=== PATIENT | male | born 1940 | race Caucasian/White ===

== ENCOUNTER 2020-12-01 07:33 | Outpatient (REF) | payer MEDICARE, SELFPAY ==
[2020-12-01 10:23] LABS: MANUAL DIFF FLAG NO
[2020-12-01 10:44] LABS: Basophils Percent Auto 0.2 % (0-2); Eosinophils Absolute Auto 0.4 X10*3/uL (0.0-0.4); Eosinophils Percent Auto 4.3 % (0-4); Hematocrit 44.6 % (42-52); Hemoglobin 14.6 g/dl (14.0-18.0); Imm Gran Abs Auto 0.05 X10*3/uL (0.00-0.03); Imm Gran Pct Auto 0.5 % (0.0-0.4); Lymphocytes Absolute Auto 2.3 X10*3/uL (1.2-4.9); Lymphocytes Percent Auto 24.4 % (20-40); Mean Corpuscular HGB Conc 32.7 g/dl (31.0-36.0); Mean Corpuscular Volume 88.7 fL (80-98); Monocytes Absolute Auto 0.8 X10*3/uL (0.1-1.2); Monocytes Percent Auto 8.2 % (2-11); Neutrophils Absolute Auto 5.8 X10*3/uL (2.0-8.3); Neutrophils Percent Auto 62.4 % (45-73); Platelet Count 234 X10*3/uL (160-400); Red Blood Count 5.03 X10*6/uL (4.60-5.80); Red Cell Distribution Width 12.5 % (11.0-16.0); White Blood Count 9.2 X10*3/uL (4.8-10.8)
[2020-12-01 10:58] LABS: Alanine Aminotransferase 30 U/L (0-40); Albumin Level 4.1 g/dL (3.5-5.0); Alkaline Phosphatase 79 U/L (39-117); Anion Gap 15 (12-20); Aspartate Amino Transferase 22 U/L (5-37); Blood Urea Nitrogen 27 mg/dL (9-16); Carbon Dioxide 26 mmol/L (22-29); Chloride 103 mmol/L (96-108); Cholesterol 106 mg/dL; Estimated Glomerular Filt Rate > 60; Glucose Fasting 112 mg/dL (60-99); HDL Cholesterol 44 mg/dL; LDL Cholesterol Calculated 35 mg/dl; Potassium 4.5 mmol/L (3.3-5.1); Sodium 139 mmol/L (135-145); Total Protein 6.3 g/dL (6.5-8.0); Triglycerides 135 mg/dL
[2020-12-01 11:05] LABS: Creatinine Urine 173.66 mg/dL
[2020-12-01 12:01] LABS: Estimated Average Glucose 120 mg/dL; Hemoglobin A1C 150.0472 umol/L; Hemoglobin A1c % 5.8 %
== END 2020-12-01 07:34 | disposition home or self-care (01) ==
LOC: HO.10HDL 07:33
PROVIDERS: Visit Provider Internal Medicine
DX: Z00.00 Encounter for general adult medical examination without abnormal findings (principal); E11.9 Type 2 diabetes mellitus without complications; E78.00 Pure hypercholesterolemia, unspecified
CPT/HCPCS: 36415; 80053; 80061; 82043; 83036; 85025

== ENCOUNTER 2021-06-04 07:27 | Outpatient (REF) | payer MEDICARE, SELFPAY ==
[2021-06-04 08:06] LABS: Estimated Average Glucose 123 mg/dL; Hemoglobin A1C 151.7213 umol/L; Hemoglobin A1c % 5.9 %
[2021-06-04 08:23] LABS: Alanine Aminotransferase 31 U/L (0-40); Albumin Level 4.1 g/dL (3.5-5.0); Alkaline Phosphatase 76 U/L (39-117); Anion Gap 11 (12-20); Aspartate Amino Transferase 19 U/L (5-37); Bilirubin Total 0.7 mg/dL (0.0-1.0); Blood Urea Nitrogen 18 mg/dL (9-16); Carbon Dioxide 27 mmol/L (22-29); Chloride 105 mmol/L (96-108); Estimated Glomerular Filt Rate > 60; Glucose Random 115 mg/dL (60-115); Potassium 4.4 mmol/L (3.3-5.1); Sodium 139 mmol/L (135-145); Total Protein 6.1 g/dL (6.5-8.0)
== END 2021-06-04 07:28 | disposition home or self-care (01) ==
LOC: HO.LAB 07:27
PROVIDERS: PCP Internal Medicine; Visit Provider Internal Medicine
DX: E11.9 Type 2 diabetes mellitus without complications (principal); I65.21 Occlusion and stenosis of right carotid artery; M54.2 Cervicalgia; R25.2 Cramp and spasm
CPT/HCPCS: 36415; 80053; 83036

== ENCOUNTER 2021-09-22 06:58 | Outpatient (REF) | payer MEDICARE, SELFPAY ==
[2021-09-22 07:54] LABS: Alanine Aminotransferase 37 U/L (0-40); Alkaline Phosphatase 69 U/L (39-117); Anion Gap 9 (12-20); Aspartate Amino Transferase 22 U/L (5-37); Bilirubin Total 0.6 mg/dL (0.0-1.0); Blood Urea Nitrogen 22 mg/dL (9-16); Calcium 8.7 mg/dL (8.4-10.2); Carbon Dioxide 28 mmol/L (22-29); Chloride 107 mmol/L (96-108); Estimated Glomerular Filt Rate > 60; Glucose Random 110 mg/dL (60-115); Potassium 4.2 mmol/L (3.3-5.1); Sodium 140 mmol/L (135-145); Total Protein 6.1 g/dL (6.5-8.0)
[2021-09-22 07:57] LABS: Estimated Average Glucose 120 mg/dL; Hemoglobin A1c % 5.8 %
== END 2021-09-22 06:59 | disposition home or self-care (01) ==
LOC: HO.LAB 06:58
PROVIDERS: PCP Internal Medicine; Visit Provider Internal Medicine
DX: Z00.00 Encounter for general adult medical examination without abnormal findings (principal); I10 Essential (primary) hypertension
CPT/HCPCS: 36415; 80053; 83036

== ENCOUNTER 2021-10-29 06:44 | Outpatient (REF) | payer MEDICARE, SELFPAY ==
[2021-10-29 06:55] LABS: MANUAL DIFF FLAG NO
[2021-10-29 07:31] LABS: Basophils Percent Auto 0.3 % (0-2); Eosinophils Absolute Auto 0.3 X10*3/uL (0.0-0.4); Eosinophils Percent Auto 3.2 % (0-4); Hematocrit 43.6 % (42.0-52.0); Hemoglobin 14.5 g/dl (14.0-18.0); Imm Gran Abs Auto 0.03 X10*3/uL (0.00-0.03); Imm Gran Pct Auto 0.3 % (0.0-0.4); Lymphocytes Absolute Auto 2.6 X10*3/uL (1.2-4.9); Lymphocytes Percent Auto 30.2 % (20-40); Mean Corpuscular HGB Conc 33.3 g/dl (31.0-36.0); Mean Corpuscular Hemoglobin 29.1 pg (27.0-33.0); Mean Corpuscular Volume 87.6 fL (80.0-98.0); Mean Platelet Volume 8.4 fL (9.4-12.4); Monocytes Absolute Auto 0.7 X10*3/uL (0.1-1.2); Monocytes Percent Auto 7.7 % (2-11); Neutrophils Absolute Auto 5.1 x10*3/uL (2.0-8.3); Neutrophils Percent Auto 58.3 % (45-73); Platelet Count 229 X10*3/uL (160-400); Red Blood Count 4.98 X10*6/uL (4.60-5.80); Red Cell Distribution Width 12.7 % (11.0-16.0); White Blood Count 8.7 X10*3/uL (4.8-10.8)
[2021-10-29 07:42] LABS: Alanine Aminotransferase 36 U/L (0-40); Albumin Level 3.9 g/dL (3.5-5.0); Alkaline Phosphatase 70 U/L (39-117); Anion Gap 14 (12-20); Aspartate Amino Transferase 21 U/L (5-37); Bilirubin Total 0.6 mg/dL (0.0-1.0); Blood Urea Nitrogen 22 mg/dL (9-16); Calcium 8.9 mg/dL (8.4-10.2); Carbon Dioxide 27 mmol/L (22-29); Chloride 105 mmol/L (96-108); Estimated Glomerular Filt Rate > 60; Glucose Random 97 mg/dL (60-115); Potassium 4.5 mmol/L (3.3-5.1); Sodium 141 mmol/L (135-145)
== END 2021-10-29 06:45 | disposition home or self-care (01) ==
LOC: HO.LAB 06:44
PROVIDERS: PCP Internal Medicine; Visit Provider Internal Medicine
DX: K59.00 Constipation, unspecified (principal); N17.9 Acute kidney failure, unspecified; R42 Dizziness and giddiness; Z79.01 Long term (current) use of anticoagulants
CPT/HCPCS: 36415; 80053; 85025

== ENCOUNTER 2022-01-05 07:21 | Outpatient (REF) | payer MEDICARE, SELFPAY ==
[2022-01-05 07:32] LABS: MANUAL DIFF FLAG NO
[2022-01-05 08:45] LABS: Basophils Percent Auto 0.3 % (0-2); Eosinophils Absolute Auto 0.2 X10*3/uL (0.0-0.4); Eosinophils Percent Auto 1.9 % (0-4); Hematocrit 47.8 % (42.0-52.0); Hemoglobin 15.6 g/dl (14.0-18.0); Imm Gran Abs Auto 0.07 X10*3/uL (0.00-0.03); Imm Gran Pct Auto 0.7 % (0.0-0.4); Lymphocytes Absolute Auto 2.7 X10*3/uL (1.2-4.9); Lymphocytes Percent Auto 28.9 % (20-40); Mean Corpuscular HGB Conc 32.6 g/dl (31.0-36.0); Mean Corpuscular Hemoglobin 29.3 pg (27.0-33.0); Mean Corpuscular Volume 89.7 fL (80.0-98.0); Mean Platelet Volume 8.5 fL (9.4-12.4); Monocytes Absolute Auto 0.6 X10*3/uL (0.1-1.2); Monocytes Percent Auto 6.1 % (2-11); Neutrophils Absolute Auto 5.8 x10*3/uL (2.0-8.3); Neutrophils Percent Auto 62.1 % (45-73); Platelet Count 218 X10*3/uL (160-400); Red Blood Count 5.33 X10*6/uL (4.60-5.80); Red Cell Distribution Width 13.3 % (11.0-16.0); White Blood Count 9.4 X10*3/uL (4.8-10.8)
[2022-01-05 08:54] LABS: Estimated Average Glucose 126 mg/dL
[2022-01-05 09:28] LABS: Alanine Aminotransferase 61 U/L (0-40); Alkaline Phosphatase 76 U/L (39-117); Anion Gap 16 (12-20); Aspartate Amino Transferase 28 U/L (5-37); Bilirubin Total 0.8 mg/dL (0.0-1.0); Blood Urea Nitrogen 24 mg/dL (9-16); Calcium 9.2 mg/dL (8.4-10.2); Carbon Dioxide 26 mmol/L (22-29); Chloride 104 mmol/L (96-108); Cholesterol 112 mg/dL; Estimated Glomerular Filt Rate > 60; Glucose Random 86 mg/dL (60-115); HDL Cholesterol 52 mg/dL; LDL Cholesterol Calculated 48 mg/dl; Potassium 4.5 mmol/L (3.3-5.1); Sodium 141 mmol/L (135-145); Triglycerides 63 mg/dL
[2022-01-05 09:52] LABS: Prostate Specific Antigen 2.43 ng/mL (<0.05-4.0); Thyroid Stimulating Hormone 1.75 uIU/mL (0.32-4.0)
[2022-01-05 09:59] LABS: Folate 9.4 ng/mL (> or = 4.0); Vitamin B12 424 pg/mL (200-900)
[2022-01-05 14:16] LABS: Creatinine Urine 164.82 mg/dL; Microalbum/Creatinine Ratio Ur 7.2 ug/mg cr
== END 2022-01-05 07:22 | disposition home or self-care (01) ==
LOC: HO.LAB 07:21
PROVIDERS: PCP Internal Medicine; Visit Provider Internal Medicine
DX: Z00.00 Encounter for general adult medical examination without abnormal findings (principal); Z12.5 Encounter for screening for malignant neoplasm of prostate; E11.40 Type 2 diabetes mellitus with diabetic neuropathy, unspecified; E78.00 Pure hypercholesterolemia, unspecified; I10 Essential (primary) hypertension; I48.91 Unspecified atrial fibrillation; N40.0 Benign prostatic hyperplasia without lower urinary tract symptoms
CPT/HCPCS: 36415; 80053; 80061; 82043; 82607; 82746; 83036; 84153; 84443; 85025

== ENCOUNTER 2022-05-20 07:01 | Outpatient (REF) | payer MEDICARE, SELFPAY ==
[2022-05-20 07:59] LABS: Alanine Aminotransferase 53 U/L (0-40); Albumin Level 3.9 g/dL (3.5-5.0); Alkaline Phosphatase 70 U/L (39-117); Anion Gap 14 (12-20); Aspartate Amino Transferase 25 U/L (5-37); Bilirubin Total 0.8 mg/dL (0.0-1.0); Blood Urea Nitrogen 28 mg/dL (9-16); Calcium 9.2 mg/dL (8.4-10.2); Carbon Dioxide 27 mmol/L (22-29); Chloride 106 mmol/L (96-108); Estimated Glomerular Filt Rate > 60; Glucose Random 98 mg/dL (60-115); Potassium 4.9 mmol/L (3.3-5.1); Sodium 142 mmol/L (135-145); Total Protein 5.9 g/dL (6.5-8.0)
[2022-05-20 09:04] LABS: Estimated Average Glucose 123 mg/dL; Hemoglobin A1c % 5.9 %
== END 2022-05-20 07:02 | disposition home or self-care (01) ==
LOC: HO.LAB 07:01
PROVIDERS: PCP Internal Medicine; Visit Provider Internal Medicine
DX: E11.40 Type 2 diabetes mellitus with diabetic neuropathy, unspecified (principal); E78.00 Pure hypercholesterolemia, unspecified; G47.62 Sleep related leg cramps; I48.91 Unspecified atrial fibrillation
CPT/HCPCS: 36415; 80053; 83036

== ENCOUNTER 2022-05-26 09:39 | Outpatient (REF) | payer MEDICARE, SELFPAY ==
--- NOTE | ~2022-05-26 | XR_ITS ---
EXAMINATION: XR HIP, RIGHT CLINICAL INFORMATION: Right hip osteoarthritis COMPARISON: None available. TECHNIQUE: Two views of the right hip. FINDINGS: Visualized portions of the proximal right femur demonstrate no fracture. Right femoral head is well-seated within the acetabulum. Right femoral acetabular joint space is well-maintained. Small osteophytes are noted along the superior and inferior acetabular margins. The pelvic ring is intact. Limited imaging of the left hip is grossly unremarkable. Calcifications noted within the central pelvis. XR/XR hip RT min 2V IMPRESSION: Mild degenerative changes of the right hip without fracture or dislocation.
== END 2022-05-26 09:40 | disposition home or self-care (01) ==
LOC: HO.XRAY 09:39
PROVIDERS: PCP Internal Medicine; Visit Provider Internal Medicine
DX: M16.11 Unilateral primary osteoarthritis, right hip (principal)
CPT/HCPCS: 73502

== ENCOUNTER 2022-06-04 10:19 | Outpatient (REF) | payer MEDICARE, SELFPAY ==
--- NOTE | ~2022-06-04 | US_ITS ---
EXAMINATION: US RETROPERITONEAL LIMITED (RENAL ONLY) CLINICAL INFORMATION: Renal cyst. COMPARISON: None available. TECHNIQUE: Real-time imaging of the kidneys. FINDINGS: RIGHT KIDNEY: 12.3 x 6.0 x 6.4 cm (SAG x AP x TRV). The kidney is normal in size and contour. No renal calculi or hydronephrosis. There is a 3.7 x 3 x 3.1 cm peripelvic cyst in the lower pole. There is question of single thin septation. No ultrasound follow-up. LEFT KIDNEY: 11.9 x 6.9 x 6.3 cm (SAG x AP x TRV). The kidney is normal in size and contour. No calculi or focal parenchymal lesions. No hydronephrosis. US/US renal BI IMPRESSION: 3.7 x 3 x 3.1 cm peripelvic cyst in the lower pole of the right kidney.
== END 2022-06-04 10:20 | disposition home or self-care (01) ==
LOC: HO.HMGCX 10:19
PROVIDERS: PCP Internal Medicine; Visit Provider Internal Medicine
DX: N28.1 Cyst of kidney, acquired (principal)
CPT/HCPCS: 76775

== ENCOUNTER 2022-08-16 07:12 | Outpatient (REF) | payer MEDICARE, SELFPAY ==
[2022-08-16 07:57] LABS: Estimated Average Glucose 111 mg/dL; Hemoglobin A1C 150.6374 umol/L; Hemoglobin A1c % 5.5 %
[2022-08-16 08:22] LABS: Alanine Aminotransferase 33 U/L (0-40); Albumin Level 3.9 g/dL (3.5-5.0); Alkaline Phosphatase 73 U/L (39-117); Anion Gap 15 (12-20); Aspartate Amino Transferase 22 U/L (5-37); Bilirubin Total 1.4 mg/dL (0.0-1.0); Blood Urea Nitrogen 23 mg/dL (9-16); Carbon Dioxide 24 mmol/L (22-29); Chloride 108 mmol/L (96-108); Estimated Glomerular Filt Rate > 60; Glucose Random 107 mg/dL (60-115); Potassium 4.7 mmol/L (3.3-5.1); Sodium 142 mmol/L (135-145); Total Protein 5.9 g/dL (6.5-8.0)
== END 2022-08-16 07:13 | disposition home or self-care (01) ==
LOC: HO.LAB 07:12
PROVIDERS: PCP Internal Medicine; Visit Provider Internal Medicine
DX: E11.9 Type 2 diabetes mellitus without complications (principal); E78.00 Pure hypercholesterolemia, unspecified; M16.11 Unilateral primary osteoarthritis, right hip; M47.812 Spondylosis without myelopathy or radiculopathy, cervical region
CPT/HCPCS: 36415; 80053; 83036

== ENCOUNTER 2022-11-17 07:20 | Outpatient (REF) | payer MEDICARE, SELFPAY ==
[2022-11-17 07:32] LABS: MANUAL DIFF FLAG NO
[2022-11-17 07:49] LABS: Basophils Percent Auto 0.4 % (0-2); Eosinophils Absolute Auto 0.3 X10*3/uL (0.0-0.4); Eosinophils Percent Auto 4.5 % (0-4); Hematocrit 45.1 % (42.0-52.0); Hemoglobin 14.7 g/dl (14.0-18.0); Imm Gran Abs Auto 0.05 X10*3/uL (0.00-0.03); Imm Gran Pct Auto 0.7 % (0.0-0.4); Lymphocytes Percent Auto 26.8 % (20-40); Mean Corpuscular HGB Conc 32.6 g/dl (31.0-36.0); Mean Corpuscular Hemoglobin 29.2 pg (27.0-33.0); Mean Corpuscular Volume 89.7 fL (80.0-98.0); Mean Platelet Volume 8.5 fL (9.4-12.4); Monocytes Absolute Auto 0.5 X10*3/uL (0.1-1.2); Monocytes Percent Auto 7.2 % (2-11); Neutrophils Absolute Auto 4.5 x10*3/uL (2.0-8.3); Neutrophils Percent Auto 60.4 % (45-73); Platelet Count 219 X10*3/uL (160-400); Red Blood Count 5.03 X10*6/uL (4.60-5.80); Red Cell Distribution Width 12.8 % (11.0-16.0); White Blood Count 7.5 X10*3/uL (4.8-10.8)
[2022-11-17 07:53] LABS: Estimated Average Glucose 114 mg/dL; Hemoglobin A1C 148.7577 umol/L; Hemoglobin A1c % 5.6 % (<6.0)
[2022-11-17 08:14] LABS: Alanine Aminotransferase 24 U/L (0-40); Albumin Level 3.9 g/dL (3.5-5.0); Alkaline Phosphatase 81 U/L (39-117); Anion Gap 11 (12-20); Aspartate Amino Transferase 23 U/L (5-37); Bilirubin Total 0.7 mg/dL (0.0-1.0); Blood Urea Nitrogen 21 mg/dL (9-16); Calcium 9.1 mg/dL (8.4-10.2); Carbon Dioxide 25 mmol/L (22-29); Chloride 110 mmol/L (96-108); Cholesterol 97 mg/dL (<200); Estimated Glomerular Filt Rate > 60; Glucose Fasting 143 mg/dL (60-99); HDL Cholesterol 41 mg/dL (>40); LDL Cholesterol Calculated 31 mg/dL (<100); Potassium 4.5 mmol/L (3.3-5.1); Sodium 141 mmol/L (135-145); Total Protein 6.1 g/dL (6.5-8.0); Triglycerides 128 mg/dL (<150)
[2022-11-17 08:38] LABS: Vitamin B12 591 pg/mL (200-900)
[2022-11-17 08:38] LABS: Creatinine Urine 199.73 mg/dL
== END 2022-11-17 07:21 | disposition home or self-care (01) ==
LOC: HO.LAB 07:20
PROVIDERS: PCP Internal Medicine; Visit Provider Internal Medicine
DX: E11.9 Type 2 diabetes mellitus without complications (principal); E78.00 Pure hypercholesterolemia, unspecified; I48.91 Unspecified atrial fibrillation; Z79.01 Long term (current) use of anticoagulants
CPT/HCPCS: 36415; 80053; 80061; 82043; 82570; 82607; 83036; 85025

== ENCOUNTER 2023-03-17 07:25 | Outpatient (REF) | payer OTHER, MEDICAID, SELFPAY ==
[2023-03-17 08:42] LABS: Estimated Average Glucose 114 mg/dL; Hemoglobin A1c % 5.6 % (<6.0)
[2023-03-17 09:08] LABS: Alanine Aminotransferase 43 U/L (0-40); Albumin Level 3.9 g/dL (3.5-5.0); Alkaline Phosphatase 67 U/L (39-117); Anion Gap 12 (12-20); Aspartate Amino Transferase 25 U/L (5-37); Bilirubin Total 0.7 mg/dL (0.0-1.0); Blood Urea Nitrogen 25 mg/dL (9-16); Carbon Dioxide 25 mmol/L (22-29); Chloride 109 mmol/L (96-108); Estimated Glomerular Filt Rate > 60; Glucose Random 107 mg/dL (60-115); Potassium 4.5 mmol/L (3.3-5.1); Sodium 141 mmol/L (135-145); Total Protein 6.1 g/dL (6.5-8.0)
== END 2023-03-17 07:26 | disposition home or self-care (01) ==
LOC: HO.LAB 07:25
PROVIDERS: PCP Internal Medicine; Visit Provider Internal Medicine
DX: E11.9 Type 2 diabetes mellitus without complications (principal); E78.00 Pure hypercholesterolemia, unspecified; N40.0 Benign prostatic hyperplasia without lower urinary tract symptoms; R31.9 Hematuria, unspecified; Z79.01 Long term (current) use of anticoagulants
CPT/HCPCS: 36415; 80053; 83036

== ENCOUNTER 2023-06-17 07:08 | Outpatient (REF) | payer MEDICARE, SELFPAY ==
[2023-06-17 07:20] LABS: MANUAL DIFF FLAG NO
[2023-06-17 07:38] LABS: Basophils Percent Auto 0.4 % (0-2); Eosinophils Absolute Auto 0.4 X10*3/uL (0.0-0.4); Eosinophils Percent Auto 5.3 % (0-4); Hematocrit 45.2 % (42.0-52.0); Imm Gran Abs Auto 0.02 X10*3/uL (0.00-0.03); Imm Gran Pct Auto 0.3 % (0.0-0.4); Lymphocytes Absolute Auto 2.2 X10*3/uL (1.2-4.9); Lymphocytes Percent Auto 31.8 % (20-40); Mean Corpuscular HGB Conc 33.2 g/dl (31.0-36.0); Mean Corpuscular Hemoglobin 29.5 pg (27.0-33.0); Mean Corpuscular Volume 88.8 fL (80.0-98.0); Mean Platelet Volume 8.5 fL (9.4-12.4); Monocytes Absolute Auto 0.6 X10*3/uL (0.1-1.2); Monocytes Percent Auto 7.9 % (2-11); Neutrophils Absolute Auto 3.8 x10*3/uL (2.0-8.3); Neutrophils Percent Auto 54.3 % (45-73); Platelet Count 176 X10*3/uL (160-400); Red Blood Count 5.09 X10*6/uL (4.60-5.80); Red Cell Distribution Width 13.3 % (11.0-16.0)
[2023-06-17 07:40] LABS: Alanine Aminotransferase 30 U/L (0-40); Albumin Level 3.9 g/dL (3.5-5.0); Alkaline Phosphatase 73 U/L (39-117); Anion Gap 12 (12-20); Aspartate Amino Transferase 23 U/L (5-37); Bilirubin Total 0.9 mg/dL (0.0-1.0); Blood Urea Nitrogen 28 mg/dL (9-16); Calcium 8.8 mg/dL (8.4-10.2); Carbon Dioxide 25 mmol/L (22-29); Chloride 109 mmol/L (96-108); Estimated Glomerular Filt Rate > 60; Glucose Random 112 mg/dL (60-115); Potassium 4.5 mmol/L (3.3-5.1); Sodium 141 mmol/L (135-145); Total Protein 6.3 g/dL (6.5-8.0)
[2023-06-17 07:46] LABS: Estimated Average Glucose 123 mg/dL; Hemoglobin A1c % 5.9 % (<6.0)
== END 2023-06-17 07:09 | disposition home or self-care (01) ==
LOC: HO.LAB 07:08
PROVIDERS: PCP Internal Medicine; Visit Provider Internal Medicine
DX: E11.9 Type 2 diabetes mellitus without complications (principal); I48.91 Unspecified atrial fibrillation; M51.16 Intervertebral disc disorders with radiculopathy, lumbar region; N40.0 Benign prostatic hyperplasia without lower urinary tract symptoms; Z79.01 Long term (current) use of anticoagulants
CPT/HCPCS: 36415; 80053; 83036; 85025

== ENCOUNTER 2023-10-14 07:24 | Outpatient (REF) | payer MEDICARE, SELFPAY ==
[2023-10-14 07:46] LABS: MANUAL DIFF FLAG NO
[2023-10-14 08:01] LABS: Basophils Percent Auto 0.3 % (0-2); Eosinophils Absolute Auto 0.3 X10*3/uL (0.0-0.4); Eosinophils Percent Auto 4.1 % (0-4); Hemoglobin 14.9 g/dl (14.0-18.0); Imm Gran Abs Auto 0.03 X10*3/uL (0.00-0.03); Imm Gran Pct Auto 0.4 % (0.0-0.4); Lymphocytes Percent Auto 28.1 % (20-40); Mean Corpuscular HGB Conc 33.9 g/dl (31.0-36.0); Mean Corpuscular Hemoglobin 29.8 pg (27.0-33.0); Mean Platelet Volume 8.3 fL (9.4-12.4); Monocytes Absolute Auto 0.5 X10*3/uL (0.1-1.2); Monocytes Percent Auto 6.7 % (2-11); Neutrophils Absolute Auto 4.3 x10*3/uL (2.0-8.3); Neutrophils Percent Auto 60.4 % (45-73); Platelet Count 172 X10*3/uL (160-400); Red Cell Distribution Width 13.1 % (11.0-16.0); White Blood Count 7.1 X10*3/uL (4.8-10.8)
[2023-10-14 08:34] LABS: Alanine Aminotransferase 29 U/L (0-40); Albumin Level 3.9 g/dL (3.5-5.0); Alkaline Phosphatase 78 U/L (39-117); Anion Gap 14 (12-20); Aspartate Amino Transferase 23 U/L (5-37); Bilirubin Total 0.7 mg/dL (0.0-1.0); Blood Urea Nitrogen 18 mg/dL (9-16); Calcium 9.2 mg/dL (8.4-10.2); Carbon Dioxide 25 mmol/L (22-29); Chloride 106 mmol/L (96-108); Estimated Glomerular Filt Rate > 60; Glucose Random 145 mg/dL (60-115); Potassium 4.5 mmol/L (3.3-5.1); Sodium 140 mmol/L (135-145)
[2023-10-14 08:36] LABS: Estimated Average Glucose 120 mg/dL; Hemoglobin A1c % 5.8 % (<6.0)
== END 2023-10-14 07:25 | disposition home or self-care (01) ==
LOC: HO.LAB 07:24
PROVIDERS: PCP Internal Medicine; Visit Provider Internal Medicine
DX: E11.9 Type 2 diabetes mellitus without complications (principal); I10 Essential (primary) hypertension; I48.91 Unspecified atrial fibrillation; I70.90 Unspecified atherosclerosis; Z79.01 Long term (current) use of anticoagulants
CPT/HCPCS: 36415; 80053; 83036; 85025

== ENCOUNTER 2023-11-01 07:57 | Outpatient (REF) | payer MEDICARE, SELFPAY ==
--- NOTE | ~2023-11-01 | FL_ITS ---
EXAMINATION: XR FLUOROSCOPY UPPER GI WITH AIR CLINICAL INFORMATION: Dysphagia COMPARISON: None TECHNIQUE: Fluoroscopic air contrast upper GI examination was performed utilizing standard techniques with thin and thick barium and effervescent granules. Numerous spot images were obtained. FINDINGS: Lateral cine images of the oropharynx and hypopharynx demonstrate normal swallow mechanism with normal epiglottic inversion and soft palate elevation. There is trace laryngeal penetration with thick barium. No tracheal penetration, glottic or subglottic aspiration identified. No nasopharyngeal reflux present. Hypopharyngeal structures appear normal without evidence of mass or diverticulum. Mild cricopharyngeal achalasia is present. Dual and single contrast images of the esophagus demonstrate a patulous esophagus. No evidence of stricture, mass, or ulcerations identified. There is to and fro motion of the barium column, with nonpropulsive tertiary contractions noted throughout the esophagus. There is moderate smooth narrowing of the GE junction, likely achalasia (for example, RF 1-14, image 301). There is a small type I hiatal hernia present. No significant gastroesophageal reflux was seen during the course of the examination and on reflux views. Dual contrast and single contrast images of the stomach demonstrated a normal contour. Evaluation of the gastric mucosa is limited from underdistention of the stomach from poor tolerance of the effervescent granules. The gastric rugal folds have a mildly thickened appearance, which may represent gastritis, however, may also be due to underdistention of the stomach. There are a few foci of contrast pooling in the fundus of the stomach that could represent small superficial apthous ulcers. Contrast freely passed into the gastric antrum and duodenal bulb without delay. Single and air-contrast images of the duodenal bulb demonstrate no abnormality. The duodenal sweep has a normal appearance, course, and mucosal fold appearance. The imaged proximal jejunum has a normal fold pattern and caliber. FLUOROSCOPY TIME: 6 minutes 4 seconds Number of Spot Images: 6 Number of Cine: 18 DOSE AREA PRODUCT: 4478 uGy-m2 (microgray-meter squared) FL/FL barium swallow with air IMPRESSION: 1. Trace laryngeal penetration with thick barium. No subglottic aspiration. 2. Mild cricopharyngeal achalasia. 3. Esophageal dysmotility 4. Moderate smooth narrowing of the GE junction that likely represents achalasia. A benign stricture cannot be ruled out. Recommend correlation with EGD. 5. Small type I hiatal hernia. 6. Limited evaluation of the gastric mucosa from underdistention of the stomach from poor tolerance of the effervescent granules. The gastric rugal folds have a mildly thickened appearance, which may represent gastritis, however, may also be due to underdistention of the stomach. There are a few foci of contrast pooling in the fundus of the stomach that could represent small superficial apthous ulcers. Recommend correlation with EGD. This procedure was performed by Jayesh Villareal PA-C, and supervised by Dr. Hamilton Electronically signed by: Memo Hamilton MD 11/02/2023 09:55 AM EDT
== END 2023-11-01 07:58 | disposition home or self-care (01) ==
LOC: HO.XRAY 07:57
PROVIDERS: PCP Internal Medicine; Visit Provider Internal Medicine
DX: R13.19 Other dysphagia (principal)
CPT/HCPCS: 74221

== ENCOUNTER → 2023-11-01 07:59 | Outpatient (BNV) | payer MEDICARE, SELFPAY | PROVIDERS: PCP Internal Medicine; Visit Provider Radiology Diagnostic Radiology | DX: K22.0 Achalasia of cardia (principal) | CPT/HCPCS: 74221 ==

== ENCOUNTER 2024-01-10 06:46 | Outpatient (REF) | payer MEDICARE, SELFPAY ==
[2024-01-10 06:59] LABS: MANUAL DIFF FLAG NO
[2024-01-10 07:45] LABS: Basophils Percent Auto 0.3 % (0-2); Eosinophils Absolute Auto 0.3 X10*3/uL (0.0-0.4); Eosinophils Percent Auto 3.6 % (0-4); Hematocrit 45.2 % (42.0-52.0); Hemoglobin 14.9 g/dl (14.0-18.0); Imm Gran Abs Auto 0.04 X10*3/uL (0.00-0.03); Imm Gran Pct Auto 0.6 % (0.0-0.4); Lymphocytes Percent Auto 28.3 % (20-40); Mean Corpuscular Hemoglobin 29.2 pg (27.0-33.0); Mean Corpuscular Volume 88.6 fL (80.0-98.0); Mean Platelet Volume 8.4 fL (9.4-12.4); Monocytes Absolute Auto 0.6 X10*3/uL (0.1-1.2); Monocytes Percent Auto 7.9 % (2-11); Neutrophils Absolute Auto 4.1 x10*3/uL (2.0-8.3); Neutrophils Percent Auto 59.3 % (45-73); Platelet Count 184 X10*3/uL (160-400); Red Cell Distribution Width 13.2 % (11.0-16.0); White Blood Count 6.9 X10*3/uL (4.8-10.8)
[2024-01-10 07:56] LABS: Estimated Average Glucose 123 mg/dL; Hemoglobin A1c % 5.9 % (<6.0); Total Hemoglobin (HGBA1C) 3921.6622 umol/L
[2024-01-10 08:16] LABS: Alanine Aminotransferase 33 U/L (0-40); Alkaline Phosphatase 83 U/L (39-117); Anion Gap 13 (12-20); Aspartate Amino Transferase 28 U/L (5-37); Bilirubin Total 0.8 mg/dL (0.0-1.0); Blood Urea Nitrogen 23 mg/dL (9-16); Calcium 9.4 mg/dL (8.4-10.2); Carbon Dioxide 25 mmol/L (22-29); Chloride 107 mmol/L (96-108); Cholesterol 155 mg/dL (<200); Estimated Glomerular Filt Rate > 60; Glucose Random 115 mg/dL (60-115); HDL Cholesterol 43 mg/dL (>40); LDL Cholesterol Calculated 82 mg/dL (<100); Potassium 4.7 mmol/L (3.3-5.1); Sodium 140 mmol/L (135-145); Total Protein 6.4 g/dL (6.5-8.0); Triglycerides 153 mg/dL (<150)
[2024-01-10 08:43] LABS: Creatinine Urine 138.63 mg/dL; Microalbumin Urine < 5.0 mg/L
== END 2024-01-10 06:47 | disposition home or self-care (01) ==
LOC: HO.LAB 06:46
PROVIDERS: PCP Internal Medicine; Visit Provider Internal Medicine
DX: E11.9 Type 2 diabetes mellitus without complications (principal); I10 Essential (primary) hypertension; I48.91 Unspecified atrial fibrillation; R13.19 Other dysphagia
CPT/HCPCS: 36415; 80053; 80061; 82043; 82570; 83036; 85025

== ENCOUNTER 2024-02-13 08:10 | Outpatient (REF) | payer MEDICARE, SELFPAY ==
--- NOTE | ~2024-02-13 | XR_ITS ---
EXAMINATION: XR HAND LEFT CLINICAL INFORMATION: Pain in left hand M79.642. COMPARISON: None TECHNIQUE: PA, lateral, and oblique views of the left hand. FINDINGS: Moderate-severe 1st CMC joint osteoarthritis. Mild degenerative changes throughout the interphalangeal joints. No acute osseous abnormality. Chronic deformity of the tuft of the 4th distal phalanx. Chronic bony protuberance at the ulnar aspect of the 2nd metacarpal head. XR/XR hand LT min 3V IMPRESSION: Moderate-severe 1st CMC joint osteoarthritis. Electronically signed by: Gonsalo Joyner MD 03/22/2024 12:53 PM EST
--- OUTSIDE RECORDS SUMMARY | 2024-02-15 12:52 | XMS_ITS | Continuity of Care Document ---
Author Organization [facility] Address [address] [address] Phone Care Team Providers Care Swiss Type Screw Machine Operator Name Role Phone Unavailable Unavailable Unavailable Advance Directives Directive Yes / No Effective Date File Name No Information Encounters Encounter Description Practice Location Reason(s) For Visit Diagnoses Date Provider Providers Copied on Encounter [facility], [address] [address], [place], [place], [id number], [place] tel:[phone] [facility] No Information No Information Family History Family Member Type Diagnosis Age At Onset No Information Payers Payer name Insurance type Covered green party ID Authoriza tion(s) No Information Social History Type Description Quantity Date Captured Comments Sex Male Smoking Status No Information Chief Complaint And Reason For Visit No Information Reason For Referral Reason For Referral No Information History Of Present Illness Encounter Date Complaint History Of Prese nt Illness No Information Functional Status Date Functional Assessmen t No Information Instructions Date Instruction Additional Infor mation No Information Assessments Type Assessment Date No Information Patient Care Teams Name Effective Dates (start - stop) Status Members No Information
== END 2024-02-13 08:11 | disposition home or self-care (01) ==
LOC: HO.HOSX 08:10
DX: M79.642 Pain in left hand (principal); M65.4 Radial styloid tenosynovitis [de Quervain]; M18.12 Unilateral primary osteoarthritis of first carpometacarpal joint, left hand
CPT/HCPCS: 20550; 73130; 99202; J1100; J2003

== ENCOUNTER 2024-02-13 14:44 | Outpatient (AMB) | payer MEDICARE, SELFPAY ==
--- NOTE | 2024-02-13 14:52 | MHC.OFFVIS ---
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 Expresses he has pain that started at his left thumb MCP joint and radiates up the radial aspect of the left hand and arm. He states he has locking in his left 4th digit as well. Patient confirmed he has numbness and tingling in his hand. Patient reports he has compression gloves however he does not use them since they offer no relief. Tylenol and ibuprofen offer no relief. Denies past history of cortisone injections in hands. Pre-diabetic patient. 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 The patient states that this pain is primarily located at the base of the left thumb, but radiates up into the forearm and even occasionally gross so painful that it radiates all the way to his shoulder. Patient states that this pain worsens with activity. Patient states he has tried occupational therapy and bracing, to minimal effect. Patient inquires about any further treatment options available to him. Denies any numbness or tingling in the left hand. No other acute complaints or concerns at this time. [facility] Social History (Updated 02/13/24 @ 14:57 by ELAN Mckinney) Alcohol intake: former Patient Tobacco Use Status: Former Tobacco user Current occupational status: retired Current occupation: right handed Physical Exam Vital Signs: BMI result Body Mass Index 30.2 Extrem Other: Patient is alert, oriented, and in no acute distress. Neuro: Normal sensation of the tips of all digits of the left hand at this time Vascular: Cap refill brisk Pain: Patient reports minimal tenderness to palpation about the base of the left thumb No tenderness to palpation of the radial styloid Negative CMC grind on the left Positive Darrell test on the left ROM: Patient is able to make a closed fist and extend all digits of the left hand fully Skin: No lacerations or abrasions. General: No ecchymosis, erythema, or evidence of infection. Psych: Appears grossly normal Affect normal Attitude cooperative Office Procedures AMB Tendon Injection Tendon Injection Details: De Quervain injection left [id number] Tendon Sheath Injection All charges added?: Procedure code (CPT) selection complete Results Reviewed Results Reviewed: X-rays obtained in the office today and independently reviewed by me, Milton Zamora PA-C, demonstrate moderate to severe degenerative changes of the 1st CMC joint of the left hand. 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 De Quervain tenosynovitis, left I educated the patient about this condition Patient is educated about the typical treatment course Patient would like to proceed with steroid injection Injection #1: The risks and benefits of a steroid injection including but not limited to risk of damage to blood vessels, nerves, tendons, infection, skin bleaching, failure to improve symptoms, increased pain, and possible need for further injections or other intervention were discussed with the patient and the patient wishes to proceed with the steroid injection. Once consent was obtained, I sterilely prepped the area over the 1st dorsal compartment of the left thumb. I then injected the 1st dorsal compartment with a combination of 1 mL of dexamethasone (4mg/ml), and 1% lidocaine. The patient tolerated the procedure well with no complications and good resolution of their symptoms prior to leaving clinic. If the patient continues to have pain 6-8 weeks following this injection, they may call to schedule appointment to discuss alternative treatment options 2. Basal joint arthritis of left thumb At this time, I feel that due to the patient's physical exam and description of his symptoms, it was more likely de Quervain tenosynovitis causing his symptoms Patient is educated that if in 6-8 weeks after de Quervain injection he is still experiencing symptoms, he should call our office for another appointment for reassessment for potential repeat de Quervain injection versus potential basal joint injection Patient was amenable to this plan Orders: Orders XR hand LT min 3V Today M79.642 - Pain in left hand Coding Level of Care Code New Pt Level 3 (83279) Diagnoses De Quervain's tenosynovitis, left M65.4 Arthritis of carpometacarpal (CMC) joint of left thumb M18.12 CPT Codes Tendon Injection - Tendon Injection 1: [id number] Tendon Sheath Injection ([id number])
[2024-02-13 14:54] VITALS: BMI 30.2
--- OUTSIDE RECORDS SUMMARY | 2024-02-15 16:14 | XMS_ITS | Continuity of Care Document ---
Author Organization formerly [facility] Address [address] [address] Phone Care Team Providers Care Land Checker Name Role Phone Unavailable Unavailable Unavailable Advance Directives Directive Yes / No Effective Date File Name No Information Encounters Encounter Description Practice Location Reason(s) For Visit Diagnoses Date Provider Providers Copied on Encounter [facility], [address] [address], [place], [place], [id number], [place] tel:[phone] [facility] No Information No Information Family History Family [...]
== END 2024-02-13 15:37 | disposition home or self-care (01) ==
PROVIDERS: PCP Internal Medicine
DX: M65.4 Radial styloid tenosynovitis [de Quervain] (principal); M18.12 Unilateral primary osteoarthritis of first carpometacarpal joint, left hand
CPT/HCPCS: 20550; 99203

== ENCOUNTER 2024-04-10 07:48 | Outpatient (REF) | payer MEDICARE, SELFPAY ==
--- NOTE | ~2024-04-10 | XR_ITS ---
CLINICAL HISTORY: M25.519 - Pain in unspecified shoulder Left shoulder three views Comparison: None Findings: No acute fracture or dislocation identified. Degenerative change glenohumeral and AC joints. No radiopaque foreign body noted. Impression: No acute bony abnormality This document has been electronically signed by: Fede Obrien MD on 04/10/2024 19:03:34
--- OUTSIDE RECORDS SUMMARY | 2024-04-10 07:50 | XMS_ITS | Continuity of Care Document ---
Author Organization [facility] Address [address] [address] Phone Care Team Providers Care Charge Preparation Technician Name Role Phone Unavailable Unavailable Unavailable Advance Directives Directive Yes / No Effective Date File Name No Information Encounters Encounter Description Practice Location Reason(s) For Visit Diagnoses Date Provider Providers Copied on Encounter [facility], [address] [address], [place], [place], [id number], [place] tel:[phone] [facility] No Information No Information Family History Family Member Type Diagnosis Age At Onset No Information Payers Payer name Insurance type Covered republican ID Authoriza tion(s) No Information Social History [...]
--- OUTSIDE RECORDS SUMMARY | 2024-04-10 07:50 | XMS_ITS | Clinical Summary ---
Author Organization [facility] Address [address] [place] [address] Care Team Providers Care Big Data Lead Name Role Phone Alexandra Tobin MD Primary Care Provider [phone] Surgical History Surgery Date Site/Laterality Comments BACK SURGERY PROCEDURE: HISTORICAL BACK SURGERY; COMMENT: age 16 COLONOSCOPY 03/12/2007 PROCEDURE: NE COLONOSCOPY FLX DX W/COLLJ SPEC WHEN PFRMD; COMMENT: Normal OTHER SURGICAL HISTORY PROCEDURE: ---- OTHER ----; COMMENT: eye surgery ANGIOPLASTY 2005 PROCEDURE: HISTORICAL ANGIOPLASTY W/STENT APPENDECTOMY PROCEDURE: HISTORICAL APPENDECTOMY CATARACT EXTRACTION Bilateral PROCEDURE: HISTORICAL CATARACT REMOVAL OTHER SURGICAL HISTORY 05/2016 PROCEDURE: NE PATIENT HAS A CORONARY ARTERY STENT Medical History Medical History Date Comments High cholesterol 04/18/2007 DX:High cholest gelacio High cholesterol 04/18/2007 DX:High cholest gelacio DJD (degenerative joint dise ase), lumbosacral 04/18/2007 DX:DJD (degenerative joint d isease), lumbosacral; COMMENT: Patient is on tramadol CAD (coronary artery disease) 04/18/2007 DX :CAD (coronary artery disease); COMMENT: S/p stent placement in [facility] on 12/2006. No exertional chest pain. 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 Rectal bleeding 04/18/2007 DX:Rectal bleedi ng; COMMENT: Small rectal bleeding CAD (coronary artery disease) 04/18/2007 DX :CAD (coronary artery disease); COMMENT: S/p stent placement in [facility] on 12/2006. No exertional chest pain. 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 EF 55% on ventriculogram. Special screening for malign ant neoplasms, colon 03/12/2008 DX:Special screening for mal ignant neoplasms, colon; COMMENT: Negative colonoscopy 03/12/2008, no colon cancer screening needed for 10 years. Esophageal reflux DX:Esophageal reflux Historical Medical DX 04/18/2007 DX:HTN Carotid stenosis 10/31/2017 DX:Carotid sten osis Heart attack (CMS/HCC) 2005 DX:Heart attack (HCC) BPH (benign prostatic hyperplasia) DX:BPH (benign prostatic hyperplasia) Depression DX:Depression Anxiety DX:Anxiety High cholesterol DX:High cholest gelacio Family History Medical History Relation Name Comments Diabetes Brother 1 Heart attack Brother 2 Bypass Other cancer Father Heart attack Mother Hyperlipidemia Mother Autoimmune disease Neg Hx Blindness Neg Hx Breast cancer Neg Hx Cataracts Neg Hx Colon cancer Neg Hx Coronary artery disease Neg Hx Glaucoma Neg Hx Heart failure Neg Hx Hyperlipidemia Neg Hx Hypertension Neg Hx Macular degeneration Neg Hx Mental illness Neg Hx Prostate cancer Neg Hx Sleep apnea Neg Hx Strabismus Neg Hx Thyroid disease Neg Hx Relation Name Status Comments Brother 1 (Age 50) CAD Brother 2 Alive CAD Daughter 1 Alive Daughter 2 Alive Father Mother CAD Son 1 Alive Son 2 Alive Social History Tobacco Use Types Packs/Day Years Used Date Smoking Tobacco: Former Smokeless Tobacco: Never Alcohol Use Standard Drinks/Week Comments Yes 0 (1 standard drink = 0.6 oz pur e alcohol) Sex and Gender Information Value Date Recorded Sex Assigned at Not on file Gender Identity Not on file Sexual Orientation Not on file Obstetrics History Plan of Treatment Health Maintenance Due Date Last Done Comments Zoster Vaccines (1 of 2) 1991 Pneumococcal Vaccine: 65+ Years (2 of 2 - PCV) 07/06/2007 07/05/2006 RSV Immunization Patients 60+ Years Old (1 - 1-dose 75+ series) 2016 Cholesterol Screening (Lipid Panel) 02/07/2022 Depression Screening 02/07/2022 Falls Risk Assessment 02/07/2022 Social Influencers of Health Screening 02/07/2022 Hypertension/CHF/CAD Annual BMP Blood Test 02/18/2022 DTaP,Tdap,and Td Vaccines (3 - Td or Tdap) 05/09/2022 05/09/2012, 11/16/2002 COVID-19 Vaccine ( season) 2023 Influenza Vaccine (#1) 2023 5, 01/09/2014, 11/21/2012, Additional history exists HIB Vaccines Aged Out No longer eligi ble based on patient's age to complete this topic HPV Vaccines Aged Out No longer eligi ble based on patient's age to complete this topic Hepatitis A Vaccines Aged Out No long er eligible based on patient's age to complete this topic Hepatitis B Vaccines Aged Out No long er eligible based on patient's age to complete this topic IPV Vaccines Aged Out No longer eligi ble based on patient's age to complete this topic MMR Vaccines Aged Out No longer eligi ble based on patient's age to complete this topic Meningococcal ACWY Vaccine Aged Out N o longer eligible based on patient's age to complete this topic RSV Immunization Patients Under 20 months Aged Out No longer eligible based on patient's age to complete this topic Varicella Vaccines Aged Out No longer eligible based on patient's age to complete this topic Care Teams Big Data Lead Relationship Specialty Start Date End Date Alexandra Tobin MD [address] [place] [address] PCP - General Internal Medicine 11/24/15
== END 2024-04-10 07:49 | disposition home or self-care (01) ==
LOC: HO.HOSX 07:48
PROVIDERS: Visit Provider Physician Assistant
DX: M25.512 Pain in left shoulder (principal); M12.812 Other specific arthropathies, not elsewhere classified, left shoulder; M19.012 Primary osteoarthritis, left shoulder; E11.9 Type 2 diabetes mellitus without complications
CPT/HCPCS: 20610; 73030; 99202; J1010; J2003

== ENCOUNTER → 2024-04-10 13:33 | Outpatient (BNV) | payer MEDICARE, SELFPAY | PROVIDERS: Visit Provider Radiology Diagnostic Radiology | DX: M25.512 Pain in left shoulder (principal) | CPT/HCPCS: 73030 ==

== ENCOUNTER 2024-04-26 07:20 | Outpatient (REF) | payer MEDICARE, SELFPAY ==
--- OUTSIDE RECORDS SUMMARY | 2024-04-26 07:22 | XMS_ITS | Clinical Summary ---
Author Organization [facility] Address [address] [place] [address] Care Team Providers Care Toll Line Repairer Name Role Phone Alexandra Tobin MD Primary Care Provider [phone] Surgical History Surgery Date Site/Laterality Comments BACK SURGERY PROCEDURE: HISTORICAL BACK SURGERY; COMMENT: age 16 COLONOSCOPY 03/12/2007 PROCEDURE: [place] COLONOSCOPY FLX DX W/COLLJ SPEC WHEN PFRMD; COMMENT: Normal OTHER SURGICAL HISTORY PROCEDURE: ---- OTHER ----; COMMENT: eye surgery ANGIOPLASTY 2005 PROCEDURE: HISTORICAL ANGIOPLASTY W/STENT APPENDECTOMY PROCEDURE: HISTORICAL APPENDECTOMY CATARACT EXTRACTION Bilateral PROCEDURE: HISTORICAL CATARACT REMOVAL OTHER SURGICAL HISTORY 05/2016 PROCEDURE: [place] PATIENT HAS A CORONARY ARTERY STENT Medical History Medical History Date Comments High cholesterol 04/18/2007 DX:High cholest gelacio High cholesterol 04/18/2007 DX:High cholest gelacio DJD (degenerative joint dise ase), lumbosacral 04/18/2007 DX:DJD (degenerative joint d isease), lumbosacral; COMMENT: Patient is on tramadol CAD (coronary artery disease) 04/18/2007 DX :CAD (coronary artery disease); COMMENT: S/p stent placement in [facility] on 12/2006. No exertional chest pain. 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 Rectal bleeding 04/18/2007 DX:Rectal bleedi ng; COMMENT: Small rectal bleeding CAD (coronary artery disease) 04/18/2007 DX :CAD (coronary artery disease); COMMENT: S/p stent placement in [facility] on 12/2006. No exertional chest pain. 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 EF 55% on ventriculogram. Special screening for [...] Recorded Sex Assigned at Not on file Legal Sex Male 7:56 AM EST Gender Identity Not on file Sexual Orientation Not on file Obstetrics History Plan of Treatment Health Maintenance Due Date Last Done Comments Zoster Vaccines (1 of 2) 1991 Pneumococcal Vaccine: 50+ Years (2 of 2 - PCV) 07/06/2007 07/05/2006 RSV Immunization Patients 60+ Years Old (1 - 1-dose 75+ series) 2016 Cholesterol Screening (Lipid Panel) 02/07/2022 Depression Screening 02/07/2022 Falls Risk Assessment 02/07/2022 Social Influencers of Health Screening 02/07/2022 Hypertension/CHF/CAD Annual BMP Blood Test 02/18/2022 DTaP,Tdap,and Td Vaccines (3 - Td or Tdap) 05/09/2022 05/09/2012, 11/16/2002 COVID-19 Vaccine ( - season) 2023 Influenza Vaccine (#1) 2023 5, [...] patient's age to complete this topic Meningococcal B Vacine Aged Out No lo nger eligible based on patient's age to complete this topic RSV Immunization Patients Under 20 months Aged Out No longer eligible based on patient's age to complete this topic Varicella Vaccines Aged Out No longer eligible based on patient's age to complete this topic Care Teams Toll Line Repairer Relationship Specialty Start Date End Date Alexandra Tobin MD [address] [place] PCP - General Internal Medicine 11/24/15
--- OUTSIDE RECORDS SUMMARY | 2024-04-26 07:22 | XMS_ITS | Continuity of Care Document ---
Author Organization [facility] Address [address] [address] Phone Care Team Providers Care Physician Coding Specialist Name Role Phone Unavailable Unavailable Unavailable Advance Directives Directive Yes / No Effective Date File Name No Information Encounters Encounter Description Practice Location Reason(s) For Visit Diagnoses Date Provider Providers Copied on Encounter [facility], [address] [address], [place], [place], [id number], [place] tel:[phone] [facility] No Information No Information Family History Family Member Type Diagnosis Age At Onset No Information Payers Payer name Insurance type Covered constitution party ID Authoriza tion(s) No Information Social [...]
[2024-04-26 07:31] LABS: MANUAL DIFF FLAG NO
[2024-04-26 07:59] LABS: Basophils Percent Auto 0.4 % (0-2); Eosinophils Absolute Auto 0.3 X10*3/uL (0.0-0.4); Eosinophils Percent Auto 3.8 % (0-4); Hematocrit 45.8 % (42.0-52.0); Hemoglobin 15.2 g/dl (14.0-18.0); Imm Gran Abs Auto 0.04 X10*3/uL (0.00-0.03); Imm Gran Pct Auto 0.5 % (0.0-0.4); Lymphocytes Absolute Auto 2.3 X10*3/uL (1.2-4.9); Lymphocytes Percent Auto 31.6 % (20-40); Mean Corpuscular HGB Conc 33.2 g/dl (31.0-36.0); Mean Corpuscular Hemoglobin 29.4 pg (27.0-33.0); Mean Corpuscular Volume 88.6 fL (80.0-98.0); Mean Platelet Volume 8.6 fL (9.4-12.4); Monocytes Absolute Auto 0.5 X10*3/uL (0.1-1.2); Monocytes Percent Auto 7.2 % (2-11); Neutrophils Absolute Auto 4.2 x10*3/uL (2.0-8.3); Neutrophils Percent Auto 56.5 % (45-73); Platelet Count 163 X10*3/uL (160-400); Red Blood Count 5.17 X10*6/uL (4.60-5.80); Red Cell Distribution Width 13.2 % (11.0-16.0); White Blood Count 7.4 X10*3/uL (4.8-10.8)
[2024-04-26 08:11] LABS: Estimated Average Glucose 123 mg/dL; Hemoglobin A1C 159.4564 umol/L; Hemoglobin A1c % 5.9 % (<6.0); Total Hemoglobin (HGBA1C) 3890.0311 umol/L
[2024-04-26 08:17] LABS: Alanine Aminotransferase 47 U/L (0-40); Albumin Level 3.9 g/dL (3.5-5.0); Alkaline Phosphatase 75 U/L (39-117); Anion Gap 13 (12-20); Aspartate Amino Transferase 36 U/L (5-37); Blood Urea Nitrogen 23 mg/dL (9-16); Calcium 8.8 mg/dL (8.4-10.2); Carbon Dioxide 27 mmol/L (22-29); Chloride 106 mmol/L (96-108); Estimated Glomerular Filt Rate > 60; Glucose Random 99 mg/dL (60-115); Potassium 4.6 mmol/L (3.3-5.1); Sodium 141 mmol/L (135-145); Total Protein 6.5 g/dL (6.5-8.0)
== END 2024-04-26 07:21 | disposition home or self-care (01) ==
LOC: HO.LAB 07:20
PROVIDERS: PCP Internal Medicine; Visit Provider Internal Medicine
DX: E11.9 Type 2 diabetes mellitus without complications (principal); E78.00 Pure hypercholesterolemia, unspecified; I10 Essential (primary) hypertension; K22.0 Achalasia of cardia; Z79.01 Long term (current) use of anticoagulants
CPT/HCPCS: 36415; 80053; 83036; 85025

== ENCOUNTER 2024-07-26 07:24 | Outpatient (REF) | payer MEDICARE, SELFPAY ==
--- OUTSIDE RECORDS SUMMARY | 2024-07-26 07:27 | XMS_ITS | Continuity of Care Document ---
Author Organization [facility] Address [address] [address] Phone Care Team Providers Care Field Handyman Name Role Phone Unavailable Unavailable Unavailable Advance Directives Directive Yes / No Effective Date File Name No Information Encounters Encounter Description Practice Location Reason(s) For Visit Diagnoses Date Provider [facility], [address] [address], [place], [place], [id number], [place] tel:[phone] No Information 2015 No Information Family [...]
[2024-07-26 07:36] LABS: MANUAL DIFF FLAG NO
[2024-07-26 08:09] LABS: Basophils Percent Auto 0.3 % (0-2); Eosinophils Absolute Auto 0.2 X10*3/uL (0.0-0.4); Eosinophils Percent Auto 3.6 % (0-4); Hematocrit 44.1 % (42.0-52.0); Imm Gran Abs Auto 0.03 X10*3/uL (0.00-0.03); Imm Gran Pct Auto 0.5 % (0.0-0.4); Lymphocytes Absolute Auto 2.2 X10*3/uL (1.2-4.9); Lymphocytes Percent Auto 33.9 % (20-40); Mean Corpuscular Hemoglobin 30.2 pg (27.0-33.0); Mean Corpuscular Volume 88.9 fL (80.0-98.0); Mean Platelet Volume 8.3 fL (9.4-12.4); Monocytes Absolute Auto 0.5 X10*3/uL (0.1-1.2); Monocytes Percent Auto 8.3 % (2-11); Neutrophils Absolute Auto 3.4 x10*3/uL (2.0-8.3); Neutrophils Percent Auto 53.4 % (45-73); Platelet Count 187 X10*3/uL (160-400); Red Blood Count 4.96 X10*6/uL (4.60-5.80); Red Cell Distribution Width 13.3 % (11.0-16.0); White Blood Count 6.4 X10*3/uL (4.8-10.8)
[2024-07-26 08:15] LABS: Estimated Average Glucose 123 mg/dL; Hemoglobin A1c % 5.9 % (<6.0); Total Hemoglobin (HGBA1C) 3891.5406 umol/L
[2024-07-26 08:48] LABS: Alanine Aminotransferase 36 U/L (0-40); Alkaline Phosphatase 76 U/L (39-117); Anion Gap 14 (12-20); Aspartate Amino Transferase 34 U/L (5-37); Blood Urea Nitrogen 23 mg/dL (9-16); Calcium 8.8 mg/dL (8.4-10.2); Carbon Dioxide 25 mmol/L (22-29); Chloride 109 mmol/L (96-108); Estimated Glomerular Filt Rate > 60; Glucose Random 103 mg/dL (60-115); Potassium 4.5 mmol/L (3.3-5.1); Sodium 143 mmol/L (135-145); Total Protein 6.2 g/dL (6.5-8.0)
== END 2024-07-26 07:25 | disposition home or self-care (01) ==
LOC: HO.LAB 07:24
PROVIDERS: PCP Internal Medicine; Visit Provider Internal Medicine
DX: E11.9 Type 2 diabetes mellitus without complications (principal); E78.00 Pure hypercholesterolemia, unspecified; I10 Essential (primary) hypertension; K22.0 Achalasia of cardia; Z79.01 Long term (current) use of anticoagulants
CPT/HCPCS: 36415; 80053; 83036; 85025

== ENCOUNTER 2024-10-04 07:13 | Outpatient (REF) | payer MEDICARE, MEDICAID, SELFPAY ==
--- OUTSIDE RECORDS SUMMARY | 2015-10-23 12:33 | XMS_ITS | Continuity of Care Document ---
Author Organization [facility] Address [address] [address] Phone Care Team Providers Care Form Setter Supervisor Name Role Phone Unavailable Unavailable Unavailable Advance Directives Directive Yes / No Effective Date File Name No Information Encounters Encounter Description Practice Location Reason(s) For Visit Diagnoses Date Provider [facility], [address] [address], [place], [place], [id number], [place] tel:[phone] [facility] No Information 2015 No Information Family History Family Member Type Diagnosis Age At Onset No Information Payers Payer name Insurance type Covered alliance party ID Authoriza tion(s) No Information Social History Type Description Quantity Date Captured Comments Sex Male Smoking Status No Information Chief Complaint And Reason For Visit No Information History Of Present Illness Encounter Date Complaint History Of Prese nt Illness No Information Instructions Date Instruction Additional Infor mation No Information Assessments Type Assessment Date No Information
--- NOTE | ~2024-10-04 | MR_ITS ---
EXAMINATION: MRI Shoulder without contrast, left TECHNIQUE: Multiplanar multisequence MR imaging through an upper extremity joint without contrast. INDICATION: pain PRIOR: April 10, 2024 x-ray FINDINGS: Rotator Cuff: There is a deep bursal surface tear versus full thickness nonretracted tear involving supraspinatus tendon at the footprint. There is intrasubstance delamination involving the undersurface of infraspinatus tendon 2.5 cm medial to the footprint that may extend to the undersurface. There is thickening and increased signal in supraspinatus and infraspinatus tendons consistent with hypertrophic tendinopathy. Rotator cuff is otherwise intact. Labrum: Intermediate signal in the posterior superior labrum is consistent with a tear. Long biceps tendon: The long biceps tendon is intact and not displaced from the groove. Acromioclavicular joint: AC joint is intact. There is trace fluid within the joint. There is a small volume of mildly complex fluid in the subacromial subdeltoid bursa. Axillary pouch: The axillary pouch is intact. Articular cartilage: There are no articular cartilage defects. Bones/Marrow: Nonspecific degenerative marrow signal is present in the lateral anatomic neck of the humerus and greater tuberosity. Soft tissues: There is very mild fatty streaking involving infraspinatus and teres minor muscles. There is no edema to suggest an active process. MR/MR shoulder LT wo con IMPRESSION: Rotator cuff tear: There is a deep bursal sided tear versus full-thickness and retracted tear of supraspinatus tendon at the footprint. There is intrasubstance delamination of infraspinatus tendon along its deep surface located 2.5 cm medial to the footprint. Tear may communicate with the undersurface. There is hypertrophic tendinopathy of supraspinatus and infraspinatus tendons. Small subacromial subdeltoid bursal effusion. Posterior superior labral tear. Electronically signed by: Boston Lopez MD 10/04/2024 10:16 AM EDT
--- OUTSIDE RECORDS SUMMARY | 2024-10-04 07:16 | XMS_ITS | Clinical Summary ---
Author Organization [facility] Address [address] [place] [id number] Care Team Providers Care Sheet Roller Operator Name Role Phone Alexandra Tobin MD Primary Care Provider [phone] Surgical History Surgery Date Site/Laterality Comments BACK SURGERY PROCEDURE: HISTORICAL BACK SURGERY; COMMENT: age 16 COLONOSCOPY 03/12/2007 PROCEDURE: [place] COLONOSCOPY FLX DX W/COLLJ SPEC WHEN PFRMD; COMMENT: Normal OTHER SURGICAL HISTORY PROCEDURE: ---- OTHER ----; COMMENT: eye surgery ANGIOPLASTY 2005 PROCEDURE: HISTORICAL ANGIOPLASTY W/STENT APPENDECTOMY PROCEDURE: HISTORICAL APPENDECTOMY CATARACT EXTRACTION Bilateral PROCEDURE: HISTORICAL CATARACT REMOVAL OTHER SURGICAL HISTORY 05/2016 PROCEDURE: [place] PATIENT HAS A CORONARY ARTERY STENT Medical History Medical History Date Comments High cholesterol 04/18/2007 DX:High cholest gelacio High cholesterol 04/18/2007 DX:High cholest gelacio DJD (degenerative joint dise ase), lumbosacral 04/18/2007 DX:DJD (degenerative joint d isease), lumbosacral; COMMENT: Patient is on tramadol CAD (coronary artery disease) 04/18/2007 DX :CAD (coronary artery disease); COMMENT: S/p stent placement in [facility] on 12/2006. No exertional chest pain. 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 Rectal bleeding 04/18/2007 DX:Rectal bleedi ng; COMMENT: Small rectal bleeding CAD (coronary artery disease) 04/18/2007 DX :CAD (coronary artery disease); COMMENT: S/p stent placement in [facility] on 12/2006. No exertional chest pain. 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 EF 55% on ventriculogram. Special screening for malign ant neoplasms, colon 03/12/2008 DX:Special screening for mal ignant neoplasms, colon; COMMENT: Negative colonoscopy 03/12/2008, no colon cancer screening needed for 10 years. Esophageal reflux DX:Esophageal reflux Historical Medical DX 04/18/2007 DX:HTN Carotid stenosis 10/31/2017 DX:Carotid sten osis Heart attack (CMS/HCC V24, C MS/HCC V28) 2005 DX:Heart attack (HCC) BPH (benign prostatic [...] 2 - PCV) 07/06/2007 07/05/2006 RSV Immunization Adult Patients (1 - 1-dose 75+ series) 2016 Cholesterol Screening (Lipid Panel) 02/07/2022 Falls Risk Assessment 02/07/2022 Social Influencers of Health Screening 02/07/2022 Hypertension/CHF/CAD Annual BMP Blood Test 02/18/2022 DTaP,Tdap,and Td Vaccines (3 - Td or Tdap) 05/09/2022 05/09/2012, 11/16/2002 COVID-19 Vaccine ( - season) 2023 Depression Screening 2024 Influenza Vaccine (#1) 2024 5, 01/09/2014, 11/21/2012, Additional history exists HIB [...] age to complete this topic Meningococcal B Vaccine Aged Out No l onger eligible based on patient's age to complete this topic RSV Immunization Patients Under 20 months Aged Out No longer eligible based on patient's age to complete this topic Varicella Vaccines Aged Out No longer eligible based on patient's age to complete this topic Care Teams Sheet Roller Operator Relationship Specialty Start Date End Date Alexandra Tobin MD [address] [facility] [address] [place], [place] PCP - General Internal Medicine 11/24/15
== END 2024-10-04 07:14 | disposition home or self-care (01) ==
LOC: HO.MRI 07:13
PROVIDERS: PCP Internal Medicine; Visit Provider Internal Medicine
DX: M75.102 Unspecified rotator cuff tear or rupture of left shoulder, not specified as traumatic (principal)
CPT/HCPCS: 73221

== ENCOUNTER → 2024-10-04 07:15 | Outpatient (BNV) | payer MEDICARE, MEDICAID, SELFPAY | PROVIDERS: PCP Internal Medicine; Visit Provider Radiology Diagnostic Radiology | DX: M75.102 Unspecified rotator cuff tear or rupture of left shoulder, not specified as traumatic (principal) | CPT/HCPCS: 73221 ==

== ENCOUNTER 2024-10-22 09:20 | Outpatient (AMB) | payer MEDICARE, MEDICAID, SELFPAY ==
--- NOTE | 2024-10-22 09:34 | MHC.OFFVIS ---
Intake Visit Reasons: OV: left shoulder pain, last inj 04/10/24 Intake Note: Jack is a 84 year old male who presents today for a follow up of his left shoulder pain, last injection (40) done on 04/10/24. Patient reports he has been having pain in his shoulder for a the last 4 months. Patient would like to know that his MRI says about his shoulder. Allergies latex Allergy (Intermediate, Verified 10/22/24 09:42) Rash HPI HPI OV: left shoulder pain, last inj 04/10/24: Details: Mr. Ahuja is an 84-year-old right-hand dominant male who presents to the office today for follow up of left shoulder pain. He was last seen in our office on 04/10/2024 where subacromial injection was given to the patient and he was referred to physical therapy. He reports that the cortisone injection did not give him any relief. Additionally, he has been working with physical therapy and attended 4 sessions. The physical therapist stated that he was plateauing and not progressing. At that time she recommended discontinuation of physical therapy. He is looking for other treatment options today. [facility] Medical History (Updated 04/10/24 @ 15:06 by Marisela Peralta PA-C) Diabetes Social History Alcohol intake: current Alcohol intake frequency: holidays/special occasions only Patient Tobacco Use Status: Former Tobacco user Current occupational status: retired Current occupation: right handed Review of Systems Const All systems reviewed & are unremarkable except as noted in HPI and below Physical Exam Const General: cooperative, healthy appearing and no acute distress Resp Effort & Inspection: normal respiratory effort and able to speak in complete sentences Cardio Rate: regular rate Peripheral pulses: Peripheral pulses 2+ throughout Skin Lesions: no lesions Rashes: no rashes Extrem Other: Left shoulder: Forward flexion to 90 degrees. Abduction to 45 degrees. External rotation to neutral. Pain with cross-body reach. NVI. Assessment & Plan Assessment & Plan (1) Rotator cuff arthropathy of left shoulder: Code(s): M12.812 - Other specific arthropathies, not elsewhere classified, left shoulder Category: Medical (2) Osteoarthritis of left shoulder: Code(s): M19.012 - Primary osteoarthritis, left shoulder Category: Medical Plan Mr. Ahuja is an 84-year-old right-hand dominant male who presents to the office today for follow up of left shoulder pain. He was last seen in our office on 04/10/2024 where subacromial injection was given to the patient and he was referred to physical therapy. He reports that the cortisone injection did not give him any relief. Additionally, he has been working with physical therapy and attended 4 sessions. The physical therapist stated that he was plateauing and not progressing. At that time she recommended discontinuation of physical therapy. He is looking for other treatment options today. While in the office today, we discussed the role of intra-articular injection under imaging guidance. The patient is amenable to try this. Additionally, we discussed the alternative being a total shoulder replacement. Patient does not wish to move forward with surgery at this time. An order has been placed for an intra-articular cortisone injection at the hospital. Additionally, I have recommended topical pain cream which will be sent to the compounding pharmacy. He will follow up with Orthopedics p.r.n., sooner if needed. Coding Level of Care Code Est Pt Level 3 (83363) Diagnoses Rotator cuff arthropathy of left shoulder M12.812 Osteoarthritis of left shoulder M19.012
--- OUTSIDE RECORDS SUMMARY | 2024-10-22 09:50 | XMS_ITS | Clinical Summary ---
Author Organization [facility] Address [address] [place] [id number] Care Team Providers Care Plaster Form Maker Name Role Phone Alexandra Tobin MD Primary Care Provider [phone] Surgical History Surgery Date Site/Laterality Comments BACK SURGERY PROCEDURE: HISTORICAL BACK SURGERY; COMMENT: age 16 COLONOSCOPY 03/12/2007 PROCEDURE: [place] COLONOSCOPY FLX DX W/COLLJ SPEC WHEN PFRMD; COMMENT: Normal OTHER SURGICAL HISTORY PROCEDURE: ---- OTHER ----; COMMENT: eye surgery ANGIOPLASTY 2005 PROCEDURE: HISTORICAL ANGIOPLASTY W/STENT APPENDECTOMY PROCEDURE: HISTORICAL APPENDECTOMY CATARACT EXTRACTION Bilateral PROCEDURE: HISTORICAL CATARACT REMOVAL OTHER SURGICAL HISTORY 05/2016 PROCEDURE: [place] PATIENT HAS A CORONARY ARTERY STENT Medical History Medical History Date Comments High cholesterol 04/18/2007 DX:High cholest gelacio High cholesterol 04/18/2007 DX:High cholest gelacio DJD (degenerative joint dise ase), lumbosacral 04/18/2007 DX:DJD (degenerative joint d isease), lumbosacral; COMMENT: Patient is on tramadol CAD (coronary artery disease) 04/18/2007 DX :CAD (coronary artery disease); COMMENT: [place] [facility] [place]. No exertional chest pain. 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 Rectal bleeding 04/18/2007 DX:Rectal bleedi ng; COMMENT: Small rectal bleeding CAD (coronary artery disease) 04/18/2007 DX :CAD (coronary artery disease); COMMENT: S/p stent placement [place] [facility] [place] 12[place]. No exertional chest pain. 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 EF 55% on ventriculogram. Special screening for [...] age to complete this topic Care Teams Plaster Form Maker Relationship Specialty Start Date End Date Alexandra Tobin MD [address] [facility] [address] [place], [place] PCP - General Internal Medicine 11/24/15
== END 2024-10-22 09:49 | disposition home or self-care (01) ==
LOC: HO.HOS 09:21
PROVIDERS: PCP Internal Medicine; Visit Provider Physician Assistant
DX: M12.812 Other specific arthropathies, not elsewhere classified, left shoulder (principal); M19.012 Primary osteoarthritis, left shoulder
CPT/HCPCS: 99213

== ENCOUNTER → 2024-10-22 09:20 | Outpatient (BNVA) | payer MEDICARE, MEDICAID, SELFPAY | PROVIDERS: PCP Internal Medicine; Visit Provider Physician Assistant | DX: M19.012 Primary osteoarthritis, left shoulder (principal) | CPT/HCPCS: 99212 ==

== ENCOUNTER 2024-10-31 12:18 | Outpatient (REF) | payer MEDICARE, MEDICAID, SELFPAY ==
--- NOTE | ~2024-10-31 | FL_ITS ---
FLUOROSCOPY GUIDED INJECTION LEFT SHOULDER HISTORY: Shoulder pain, therapeutic injection. COMPARISON: MR left shoulder 10/04/2024. TECHNIQUE: Following full and informed consent, the patient was placed in the supine position on the fluoroscopy table. The left shoulder joint was localized utilizing fluoroscopic guidance. The area was marked, prepped and draped in sterile fashion. 1% Lidocaine was utilized for skin and subcutaneous tissue anesthesia for an anterior approach to the shoulder joint. Following this, a 22-gauge needle was advanced into the shoulder joint space utilizing fluoroscopic guidance. Intra-articular positioning was confirmed with a small amount of Isovue-300 contrast. Subsequently approximately 8 mL (of a mixture consisting of 2 mL 1% lidocaine, 40 mg Depo-Medrol, and 5 mL Isovue-300 contrast) was injected into the joint space under direct fluoroscopic visualization. The needle was removed. The patient tolerated the procedure well and there were no immediate complications. FLUOROSCOPY TIME: 15 seconds. DAP = 250.4 uGym2 Total number of fluoroscopic images archived and saved in the patients permanent medical record: 1 FL/FL Guided Asp Inj Major Jt LT IMPRESSION: 1. Successful injection of 40 mg Depo-Medrol into the LEFT shoulder joint. Electronically signed by: Memo Hamilton MD 10/31/2024 02:31 PM EDT RP
[2024-10-31] MEDS: iohexoL 300 MG/ML 50 ML INFUS..BTL 6 ML INTRAARTIC (14:06)
[2024-10-31] MEDS: Lidocaine HCl 2 % MPF 5 ML VIAL 3 ML INFILTRATI (14:18)
== END 2024-10-31 12:19 | disposition home or self-care (01) ==
LOC: HO.XRAY 12:18
PROVIDERS: PCP Internal Medicine; Visit Provider Physician Assistant
DX: M19.012 Primary osteoarthritis, left shoulder (principal)
CPT/HCPCS: 20610; 77002; J1010; J2003; Q9967

== ENCOUNTER → 2024-10-31 12:22 | Outpatient (BNV) | payer MEDICARE, MEDICAID, SELFPAY | PROVIDERS: PCP Internal Medicine; Visit Provider Radiology Diagnostic Radiology | DX: M25.512 Pain in left shoulder (principal) | CPT/HCPCS: 20610; 77002 ==

== ENCOUNTER 2024-11-12 07:36 | Outpatient (REF) | payer MEDICARE, MEDICAID, SELFPAY ==
--- OUTSIDE RECORDS SUMMARY | 2015-10-23 12:33 | XMS_ITS | Continuity of Care Document ---
Author Organization [facility] Address [address] [address] Phone Care Team Providers Care Dental Biller Name Role Phone Unavailable Unavailable Unavailable Advance Directives Directive Yes / No Effective Date File Name No Information Encounters Encounter Description Practice Location Reason(s) For Visit Diagnoses Date Provider [facility], [address] [address], [place], [place], [id number], [place] tel:[phone] [facility] [address] No Information 2015 No Information Family History Family Member Type Diagnosis Age At Onset No Information Payers Payer name Insurance type Covered democrat ID Authoriza tion(s) No Information Social History Type Description Quantity Date Captured Comments Sex Male Smoking Status No Information Chief Complaint And Reason For Visit No Information History Of Present Illness Encounter Date Complaint History Of Prese nt Illness No Information Instructions Date Instruction Additional Infor mation No Information Assessments Type Assessment Date No Information
--- OUTSIDE RECORDS SUMMARY | 2024-11-12 07:39 | XMS_ITS | Clinical Summary ---
Author Organization [facility] Address [address] [place] [phone] Care Team Providers Care Glove Cleaner Name Role Phone Alexandra Tobin MD Primary Care Provider [phone] Surgical History Surgery Date Site/Laterality Comments BACK SURGERY PROCEDURE: HISTORICAL BACK SURGERY; COMMENT: age 16 COLONOSCOPY 03/12/2007 PROCEDURE: CT COLONOSCOPY FLX DX W/COLLJ SPEC WHEN PFRMD; COMMENT: Normal OTHER SURGICAL HISTORY PROCEDURE: ---- OTHER ----; COMMENT: eye surgery ANGIOPLASTY 2005 PROCEDURE: HISTORICAL ANGIOPLASTY W/STENT APPENDECTOMY PROCEDURE: HISTORICAL APPENDECTOMY CATARACT EXTRACTION Bilateral PROCEDURE: HISTORICAL CATARACT REMOVAL OTHER SURGICAL HISTORY 05/2016 PROCEDURE: CT PATIENT HAS A CORONARY ARTERY STENT Medical History Medical History Date Comments High cholesterol 04/18/2007 DX:High cholest gelacio High cholesterol 04/18/2007 DX:High cholest gelacio DJD (degenerative joint dise ase), lumbosacral 04/18/2007 DX:DJD (degenerative joint d isease), lumbosacral; COMMENT: Patient is on tramadol CAD (coronary artery disease) 04/18/2007 DX :CAD (coronary artery disease); COMMENT: S/p stent placement in [facility] [place] 12[place]2006. No exertional chest pain. 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 Rectal bleeding 04/18/2007 DX:Rectal bleedi ng; COMMENT: Small rectal bleeding CAD (coronary artery disease) 04/18/2007 DX :CAD (coronary artery disease); COMMENT: S/p stent placement in [facility] on 12/2006. No exertional chest pain. 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 EF 55% on ventriculogram. Special screening for [...] - Td or Tdap) 05/09/2022 05/09/2012, 11/16/2002 Depression Screening 2024 COVID-19 Vaccine ( - season) 2024 Influenza Vaccine (#1) 2024 5, 01/09/2014, [...] age to complete this topic Care Teams Glove Cleaner Relationship Specialty Start Date End Date Alexandra Tobin MD [address] [facility] [place] [place] [address], [place] PCP - General Internal Medicine 11/24/15
[2024-11-12 07:54] LABS: MANUAL DIFF FLAG NO
[2024-11-12 08:36] LABS: Hemoglobin A1C 168.4741 umol/L; Total Hemoglobin (HGBA1C) 3684.3639 umol/L
[2024-11-12 09:15] LABS: Hematocrit 42.6 % (42.0-52.0); Hemoglobin 14.2 g/dl (14.0-18.0); Imm Gran Abs Auto 0.03 X10*3/uL (0.00-0.03); Imm Gran Pct Auto 0.4 % (0.0-0.4); Lymphocytes Absolute Auto 2.0 X10*3/uL (1.2-4.9); Mean Corpuscular HGB Conc 33.3 g/dl (31.0-36.0); Mean Corpuscular Hemoglobin 29.4 pg (27.0-33.0); Mean Corpuscular Volume 88.2 fL (80.0-98.0); NRBC Abs Auto 0.000 X10*3/uL (0.0-0.012); NRBC Pct Auto 0.0 /100WBC (0.0-0.2); Platelet Count 188 X10*3/uL (160-400); Red Blood Count 4.83 X10*6/uL (4.60-5.80); White Blood Count 7.3 X10*3/uL (4.8-10.8)
[2024-11-12 09:25] LABS: Alanine Aminotransferase 35 U/L (0-40); Albumin Level 4.0 g/dL (3.5-5.0); Alkaline Phosphatase 75 U/L (39-117); Anion Gap 12 (12-20); Aspartate Amino Transferase 31 U/L (5-37); Blood Urea Nitrogen 23 mg/dL (9-16); Calcium 8.4 mg/dL (8.4-10.2); Carbon Dioxide 28 mmol/L (22-29); Chloride 108 mmol/L (96-108); Estimated Glomerular Filt Rate > 60; Potassium 4.7 mmol/L (3.3-5.1); Sodium 143 mmol/L (135-145); Total Protein 6.0 g/dL (6.5-8.0)
== END 2024-11-12 07:37 | disposition home or self-care (01) ==
LOC: HO.LAB 07:36
PROVIDERS: PCP Internal Medicine; Visit Provider Internal Medicine
DX: E11.9 Type 2 diabetes mellitus without complications (principal); I48.91 Unspecified atrial fibrillation; M67.814 Other specified disorders of tendon, left shoulder; Z79.01 Long term (current) use of anticoagulants; Z95.818 Presence of other cardiac implants and grafts
CPT/HCPCS: 36415; 80053; 83036; 85025

== ENCOUNTER 2025-02-07 13:17 | Outpatient (AMB) | payer MEDICARE, MEDICAID, SELFPAY ==
--- NOTE | 2025-02-07 13:20 | MHC.OFFVIS ---
Intake Visit Reasons: OV-Left shoulder pain/discuss other treatment opt. Intake Note: Jack is a 84 year old right hand dominant male who presents today for a follow up of his left shoulder pain, last intra-articular injection was done on 10/31/24. Patient reports he is still having ongoing pain in his shoulder. His pain has been off and on but when he is playing cards his shoulder hurts. Allergies latex Allergy (Intermediate, Verified 02/07/25 13:48) Rash HPI HPI OV-Left shoulder pain/discuss other treatment opt.: Details: Mr. Ahuja is an 84-year-old right-hand dominant male who presents to the office today for continued left shoulder pain. Patient underwent a left shoulder subacromial cortisone injection on 04/10/2024 which did not give him any relief. He contacted our office in which an order has been placed for an intra-articular glenohumeral joint injection was placed. He states that this injection was also not helpful to him. He reports that his pain will occasionally travel down the entire left upper extremity. He endorses numbness and tingling in the left hand. He denies any neck pain. He reports that his symptoms are most noticeable when he is playing cards and has his arms in front of him holding the cards with his head looking downwards. [facility] Medical History (Updated 04/10/24 @ 15:06 by Marisela Peralta PA-C) Diabetes Social History Alcohol intake: current Alcohol intake frequency: holidays/special occasions only Patient Tobacco Use Status: Former Tobacco user Current occupational status: retired Current occupation: right handed Review of Systems Const All systems reviewed & are unremarkable except as noted in HPI and below Physical Exam Const General: cooperative, healthy appearing and no acute distress Resp Effort & Inspection: normal respiratory effort and able to speak in complete sentences Cardio Rate: regular rate Peripheral pulses: Peripheral pulses 2+ throughout Skin Lesions: no lesions Rashes: no rashes Extrem Other: Left shoulder: Forward flexion lacking roughly 20 degrees. Abduction to 120 degrees degrees. External rotation to 45 degrees. Pain with cross-body reach. 3/5 strength with empty can. NVI. Assessment & Plan Assessment & Plan (1) Rotator cuff arthropathy of left shoulder: Code(s): M12.812 - Other specific arthropathies, not elsewhere classified, left shoulder Category: Medical Plan Mr. Ahuja is an 84-year-old right-hand dominant male who presents to the office today for continued left shoulder pain. Patient underwent a left shoulder subacromial cortisone injection on 04/10/2024 which did not give him any relief. He contacted our office in which an order has been placed for an intra-articular glenohumeral joint injection was placed. He states that this injection was also not helpful to him. He reports that his pain will occasionally travel down the entire left upper extremity. He endorses numbness and tingling in the left hand. He denies any neck pain. He reports that his symptoms are most noticeable when he is playing cards and has his arms in front of him holding the cards with his head looking downwards. While in the office today, the patient shared with me that his girlfriend is currently in a nursing facility as she has been having difficulty with her eyesight. He does not necessarily feel he is ready to proceed with surgery at this time which would include reverse total shoulder arthroplasty. Unfortunately, arthroscopic rotator cuff repair would likely not be beneficial as MRI imaging shows a full-thickness and retracted tear at the supraspinatus foot print Surgical indication is not recommended at this time as the patient is able to demonstrate good range of motion. At this time I would like the patient to be evaluated by our pain management specialists for further evaluation and treatment. Follow up with Orthopedics will be PRN, sooner if needed. X-rays of the left shoulder obtained on 04/10/2024: Negative for any bony abnormalities. MRI of the left shoulder obtained on 10/04/2024: IMPRESSION: Rotator cuff tear: There is a deep bursal sided tear versus full-thickness and retracted tear of supraspinatus tendon at the footprint. There is intrasubstance delamination of infraspinatus tendon along its deep surface located 2.5 cm medial to the footprint. Tear may communicate with the undersurface. There is hypertrophic tendinopathy of supraspinatus and infraspinatus tendons. Small subacromial subdeltoid bursal effusion. Posterior superior labral tear. Coding Level of Care Code Est Pt Level 3 (20708) Diagnoses Rotator cuff arthropathy of left shoulder M12.812
== END 2025-02-07 14:25 | disposition home or self-care (01) ==
LOC: HO.HOS 13:18
PROVIDERS: PCP Internal Medicine; Visit Provider Physician Assistant
DX: M12.812 Other specific arthropathies, not elsewhere classified, left shoulder (principal)
CPT/HCPCS: 99213

== ENCOUNTER → 2025-02-07 13:17 | Outpatient (BNVA) | payer MEDICARE, MEDICAID, SELFPAY | PROVIDERS: PCP Internal Medicine; Visit Provider Physician Assistant | DX: M12.812 Other specific arthropathies, not elsewhere classified, left shoulder (principal) | CPT/HCPCS: 99212 ==